=== PATIENT | female | born 1955 | race African-American/Black ===

== ENCOUNTER 2019-09-21 11:05 | Inpatient (IN) | payer MEDICAID ==
[~2019-09-21] VITALS: Ht 165.1 cm; Wt 65.8 kg
[2019-09-21] MEDS ORDERED: MORPHINE SULFATE 4 MG/ML CPJ (NOT FOR IM USE) IV STA (11:24)
[2019-09-21] MEDS ORDERED: ASPIRIN 325MG EC TABLET PO ONE (13:30)
[2019-09-21 13:45] LABS: BASOPHILS % 0.8 % (0.0-2.0); EOSINOPHILS % 3.5 % (0.0-5.0); HEMATOCRIT. 42.8 % (36.0-48.0); HEMOGLOBIN. 14.2 g/dL (12.0-16.0); LYMPHOCYTES % 23.9 % (20.0-50.0); MEAN CORPUSCULAR HEMOGLOBIN 28.4 pg (28.0-32.0); MEAN CORPUSCULAR VOLUME 85.5 fL (81.0-99.0); MEAN PLATELET VOLUME 7.5 fl (7.4-10.4); MONOCYTES % 14.9 % (2.0-8.0); NEUTROPHILS % 56.9 % (40.0-76.0); PLATELET 291 x1000/uL (130-400); RED BLOOD CELL COUNT 5.01 mill/uL (4.2-5.4); RED CELL DISTRIBUTION WIDTH 14.9 % (11.6-14.6)
[2019-09-21 13:55] LABS: CHLORIDE 108 mEq/L (98-107)
[2019-09-21] MEDS ORDERED: CLONIDINE 0.1MG TABLET PO PRN (15:15)
[2019-09-21] MEDS ORDERED: ONDANSETRON HCL 4MG/2ML INJ IV PRN (15:15)
[2019-09-21] MEDS ORDERED: ACETAMINOPHEN 325MG TABLET PO PRN (15:15)
[2019-09-21 18:38] VITALS: BP 109/79
[2019-09-21 20:00] VITALS: BP 127/92
[2019-09-21] MEDS: FUROSEMIDE 20MG/2ML VIAL IVP SCH (20:35)
[2019-09-22] VITALS: BP 107/70
[2019-09-22] MEDS ORDERED: SPIR50TA5 PO (00:41)
[2019-09-22] MEDS ORDERED: EZET10TA13 PO (00:41)
[2019-09-22] MEDS ORDERED: POTA8TAB8 PO (00:41)
[2019-09-22] MEDS ORDERED: ATOR-2 PO (00:41)
[2019-09-22] MEDS ORDERED: CARV6.2548 PO (00:41)
[2019-09-22] MEDS ORDERED: FURO40TA5 PO (00:41)
[2019-09-22 00:50] LABS: CREATINE KINASE 152 IU/L (26-192)
[2019-09-22 00:51] LABS: CREATINE KINASE MB FRACTION 1.1 ng/mL (0.5-3.6)
[2019-09-22 04:00] VITALS: BP 119/60
[2019-09-22 08:00] VITALS: BP 105/70
[2019-09-22 09:10] LABS: HEMOGLOBIN. 13.8 g/dL (12.0-16.0); MEAN CORPUSCULAR HEMOGLOBIN 28.7 pg (28.0-32.0); MEAN CORPUSCULAR VOLUME 85.3 fL (81.0-99.0); MEAN PLATELET VOLUME 7.5 fl (7.4-10.4); PLATELET 316 x1000/uL (130-400); RED BLOOD CELL COUNT 4.81 mill/uL (4.2-5.4); RED CELL DISTRIBUTION WIDTH 14.8 % (11.6-14.6)
[2019-09-22 09:23] LABS: CHLORIDE 107 mEq/L (98-107)
[2019-09-22 09:32] LABS: CREATINE KINASE 142 IU/L (26-192)
[2019-09-22] MEDS: CARVEDILOL 6.25 MG TABLET PO SCH ×2 (09:51→21:43)
[2019-09-22] MEDS: FUROSEMIDE 20MG/2ML VIAL IVP SCH (09:51)
[2019-09-22] MEDS: SPIRONOLACTONE 50MG TABLET PO SCH (09:52)
[2019-09-22 10:20] LABS: PLATELET ESTIMATE NORMAL
[2019-09-22 12:00] VITALS: BP 107/68
[2019-09-22] MEDS: HYDROCODONE/ACETAMINOPHEN 5/325MG TABLET PO PRN ×2 (12:22→21:44)
[2019-09-22] MEDS: GABAPENTIN 300MG CAPSULE PO SCH ×2 (14:59→21:43)
[2019-09-22] MEDS: EZETIMIBE 10MG TABLET PO SCH (14:59)
[2019-09-22 16:00] VITALS: BP 102/66
[2019-09-22 20:00] VITALS: BP 127/87
[2019-09-22 20:35] LABS: CLARITY URINE TURBID (CLEAR); COLOR URINE YELLOW (YELLOW); KETONES URINE NEGATIVE (NEGATIVE); LEUKOCYTE ESTERASE URINE 3+ (NEGATIVE); NITRITE URINE NEGATIVE (NEGATIVE); OCCULT BLOOD URINE TRACE (NEGATIVE); PROTEIN URINE NEGATIVE (NEGATIVE); SPECIFIC GRAVITY URINE 1.014 (1.005-1.030); UROBILINOGEN URINE 0.2 E.U./dL (0.2-1.0)
[2019-09-22 20:48] LABS: *AMPHETAMINES SCREEN URINE NEGATIVE (NEGATIVE); *BARBITURATES SCREEN URINE NEGATIVE (NEGATIVE); *BENZODIAZEPINES SCREEN URINE NEGATIVE (NEGATIVE); *COCAINE SCREEN URINE NEGATIVE (NEGATIVE)
[2019-09-22 20:50] LABS: CANNABINOID URINE SCREEN NEGATIVE (NEGATIVE); METHADONE URINE SCREEN NEGATIVE (NEGATIVE); OPIATES URINE SCREEN PRESUMTIVE POSITIVE (NEGATIVE); PHENCYCLIDINE URINE SCREEN NEGATIVE (NEGATIVE)
[2019-09-22] MEDS ORDERED: ATORVASTATIN CALCIUM 40MG TABLET PO SCH (21:00)
[2019-09-23] VITALS: BP 116/62
[2019-09-23 04:00] VITALS: BP 105/72
[2019-09-23] MEDS: IPRATROPIUM/ALBUTEROL 0.5-3(2.5)MG/3ML NEB HHN SCH ×2 (05:00→08:36)
[2019-09-23] MEDS: GABAPENTIN 300MG CAPSULE PO SCH ×2 (05:57→16:10)
[2019-09-23 08:00] VITALS: BP 146/71
[2019-09-23] MEDS ORDERED: ASPIRIN 81MG TABLET PO SCH (09:00)
[2019-09-23] MEDS: SPIRONOLACTONE 50MG TABLET PO SCH (09:09)
[2019-09-23] MEDS: FUROSEMIDE 20MG/2ML VIAL IVP SCH (09:09)
[2019-09-23] MEDS: CARVEDILOL 6.25 MG TABLET PO SCH (09:09)
[2019-09-23] MEDS: EZETIMIBE 10MG TABLET PO SCH (09:09)
[2019-09-23 12:00] VITALS: BP 112/60
[2019-09-23 16:00] VITALS: BP 110/69
[2019-09-23] MEDS: HYDROCODONE/ACETAMINOPHEN 5/325MG TABLET PO PRN (16:14)
[2019-09-23 17:18] VITALS: BP 110/69
== END 2019-09-23 19:30 | disposition home or self-care (01) | DRG 194 ==
LOC: ER 11:05 → 5WST 14:20 → EDBEDREQ 14:40 → ENRESERV 17:32
PROVIDERS: ADMIT Internal Medicine; ATTEND Internal Medicine
DX: I11.0 Hypertensive heart disease with heart failure (principal); I24.9 Acute ischemic heart disease, unspecified; G62.9 Polyneuropathy, unspecified; I50.43 Acute on chronic combined systolic (congestive) and diastolic (congestive) heart failure; I69.354 Hemiplegia and hemiparesis following cerebral infarction affecting left non-dominant side; E78.5 Hyperlipidemia, unspecified; E78.00 Pure hypercholesterolemia, unspecified; I25.10 Atherosclerotic heart disease of native coronary artery without angina pectoris; I25.2 Old myocardial infarction; Z91.14 Patient's other noncompliance with medication regimen; Z88.0 Allergy status to penicillin
CPT/HCPCS: 36415; 71045; 80048; 80061; 80305; 81003; 82550; 82553; 83880; 84443; 84484; 93005; 93306; 97162; 99285; J1940; J7620

== ENCOUNTER 2020-03-09 08:13 | Inpatient (IN) | payer MEDICAID ==
[~2020-03-09] VITALS: Ht 162.6 cm; Wt 67.6 kg
[~2020-03-09 08:13] MED LIST: ATOR-2 PO; CARV6.2548 PO; EZET10TA13 PO; FURO40TA5 PO; POTA8TAB8 PO; SPIR50TA5 PO
[2020-03-09] MEDS ORDERED: ASPIRIN 81MG TABLET PO ONE (09:00)
[2020-03-09] MEDS ORDERED: NITROGLYCERIN 0.4MG TABLET SL SL ONE ×2 (09:15→14:15)
[2020-03-09 11:27] LABS: BASOPHILS % 0.5 % (0.0-2.0); HEMATOCRIT. 39.5 % (36.0-48.0); HEMOGLOBIN. 13.7 g/dL (12.0-16.0); LYMPHOCYTES % 21.4 % (20.0-50.0); MEAN CORPUSCULAR HEMOGLOBIN 29.8 pg (28.0-32.0); MEAN CORPUSCULAR VOLUME 86.2 fL (81.0-99.0); MEAN PLATELET VOLUME 7.1 fl (7.4-10.4); MONOCYTES % 9.4 % (2.0-8.0); NEUTROPHILS % 64.7 % (40.0-76.0); PLATELET 329 x1000/uL (130-400); RED BLOOD CELL COUNT 4.58 mill/uL (4.2-5.4); RED CELL DISTRIBUTION WIDTH 13.5 % (11.6-14.6)
[2020-03-09] MEDS ORDERED: ONDANSETRON HCL 4MG/2ML INJ IV STA (14:27)
[2020-03-09] MEDS ORDERED: MORPHINE SULFATE 4 MG/ML CPJ (NOT FOR IM USE) IV STA (14:27)
[2020-03-09 15:09] LABS: CHLORIDE 106 mEq/L (98-107)
[2020-03-09] MEDS ORDERED: ACETAMINOPHEN 325MG TABLET PO PRN (16:00)
[2020-03-09] MEDS ORDERED: CLONIDINE 0.1MG TABLET PO PRN (16:00)
[2020-03-09] MEDS ORDERED: ONDANSETRON HCL 4MG/2ML INJ IV PRN (16:00)
[2020-03-09] MEDS ORDERED: DIPHENHYDRAMINE 50MG/ML VIAL IV PRN (16:00)
[2020-03-09] MEDS: ENOXAPARIN 40MG/0.4ML SYR SUBCUT SCH (16:14)
[2020-03-09 17:17] LABS: PHOSPHORUS 3.6 mg/dL (2.5-4.9)
[2020-03-09] MEDS: MORPHINE SULFATE 2 MG/ML CPJ (NOT FOR IM USE) IV PRN (19:52)
[2020-03-10 02:07] VITALS: BP 136/96
[2020-03-10] MEDS: MORPHINE SULFATE 2 MG/ML CPJ (NOT FOR IM USE) IV PRN ×3 (02:38→23:52)
[2020-03-10 06:37] VITALS: BP 113/62
[2020-03-10 08:00] VITALS: BP 125/57
[2020-03-10 12:00] VITALS: BP 113/71
[2020-03-10] MEDS: ENOXAPARIN 40MG/0.4ML SYR SUBCUT SCH (15:32)
[2020-03-10 15:54] LABS: HEMOGLOBIN. 12.9 g/dL (12.0-16.0); MEAN CORPUSCULAR HEMOGLOBIN 29.8 pg (28.0-32.0); MEAN CORPUSCULAR VOLUME 85.4 fL (81.0-99.0); MEAN PLATELET VOLUME 6.9 fl (7.4-10.4); PLATELET 282 x1000/uL (130-400); RED BLOOD CELL COUNT 4.34 mill/uL (4.2-5.4); RED CELL DISTRIBUTION WIDTH 13.6 % (11.6-14.6)
[2020-03-10 16:00] VITALS: BP 114/61
[2020-03-10 16:08] LABS: CHLORIDE 106 mEq/L (98-107)
[2020-03-10 16:14] LABS: LDL CHOLESTEROL 68 mg/dL (5-100)
[2020-03-10 16:16] LABS: HDL CHOLESTEROL 36 mg/dL (40-59)
[2020-03-10] MEDS: SPIRONOLACTONE 50MG TABLET PO SCH (18:48)
[2020-03-10] MEDS: ASPIRIN 81MG TABLET PO SCH (18:48)
[2020-03-10] MEDS: FUROSEMIDE 40MG/4ML VIAL IVP SCH (18:48)
[2020-03-10] MEDS: CARVEDILOL 6.25 MG TABLET PO SCH (18:49)
[2020-03-10 20:00] VITALS: BP 138/91
[2020-03-10] MEDS: ATORVASTATIN CALCIUM 40MG TABLET PO SCH (21:24)
[2020-03-11] VITALS (7 sets, daily range): BP systolic 103–123; BP diastolic 58–85
[2020-03-11 01:51] LABS: PLATELET ESTIMATE NORMAL
[2020-03-11] MEDS: CARVEDILOL 6.25 MG TABLET PO SCH ×2 (08:18→16:45)
[2020-03-11] MEDS: ASPIRIN 81MG TABLET PO SCH (08:18)
[2020-03-11] MEDS: FUROSEMIDE 40MG/4ML VIAL IVP SCH (08:18)
[2020-03-11] MEDS: SPIRONOLACTONE 50MG TABLET PO SCH (08:18)
[2020-03-11] MEDS: ENOXAPARIN 40MG/0.4ML SYR SUBCUT SCH (16:08)
[2020-03-11] MEDS ORDERED: ASPI-1160 PO (16:22)
[2020-03-11] MEDS: MORPHINE SULFATE 2 MG/ML CPJ (NOT FOR IM USE) IV PRN (20:13)
[2020-03-11] MEDS: ATORVASTATIN CALCIUM 40MG TABLET PO SCH (20:13)
== END 2020-03-11 23:03 | disposition home or self-care (01) | DRG 194 ==
LOC: ER 08:13 → EDBEDREQ 19:14 → MICUSO 23:24 → 7WST 03-10 01:37 → 6WST 03-10 05:37
PROVIDERS: ADMIT Internal Medicine; ATTEND Internal Medicine
DX: I11.0 Hypertensive heart disease with heart failure (principal); I69.359 Hemiplegia and hemiparesis following cerebral infarction affecting unspecified side; E78.00 Pure hypercholesterolemia, unspecified; I50.43 Acute on chronic combined systolic (congestive) and diastolic (congestive) heart failure; E78.5 Hyperlipidemia, unspecified; I25.10 Atherosclerotic heart disease of native coronary artery without angina pectoris; E05.90 Thyrotoxicosis, unspecified without thyrotoxic crisis or storm; I34.0 Nonrheumatic mitral (valve) insufficiency; J44.9 Chronic obstructive pulmonary disease, unspecified; Z59.0 Homelessness; Z87.891 Personal history of nicotine dependence; Z88.0 Allergy status to penicillin; Z03.818 Encounter for observation for suspected exposure to other biological agents ruled out; Z79.899 Other long term (current) drug therapy; Z79.82 Long term (current) use of aspirin; I25.2 Old myocardial infarction
CPT/HCPCS: 36415; 71045; 80053; 80061; 83735; 83880; 84100; 84443; 84484; 85025; 87804; 93005; 96374; 99285; J1650; J1940; J2270; J2405; U0003-CS